=== PATIENT | female | born 1945 | race Caucasian/White ===

== ENCOUNTER → 2017-03-15 | Outpatient (CLI) | payer MEDICARE, BC ==
--- NOTE | 2017-03-15 15:45 | RADRPT ---
PROCEDURE: XR right knee. CLINICAL INDICATION: Knee pain TECHNIQUE: AP weightbearing, PA weightbearing, lateral weightbearing and sunrise views are availab le for review. COMPARISON: None available FINDINGS: There is severe osteoarthrosis involving the medial tibial femoral compartment and patellofemoral co mpartment and moderate osteoarthrosis involving the lateral tibial femoral compartment. This is asso ciated with joint space narrowing, subchondral sclerosis and osteophytosis. There is otherwise normal mineralization, architecture and alignment. No fractures are identified. No osseous lesions are identified. The soft tissues are unremarkable. IMPRESSION: Severe osteoarthrosis involving the medial tibial femoral compartment and patellofemoral compartment and moderate osteoarthrosis involving the lateral tibial femoral compartment. RPTAT: [facility] .Armando Romero MD, Date Time Electronically viewed and signed by .Armando Romero MD, on 03/15/2017 15:45 .B/
== END | disposition home or self-care (01) ==
LOC: HKI 14:49
PROVIDERS: ATTEND Orthopaedic Surgery
DX: M17.0 Bilateral primary osteoarthritis of knee (principal); M25.561 Pain in right knee; M25.562 Pain in left knee
CPT/HCPCS: 73564; G0463